=== PATIENT | female | born 2000 | race Caucasian/White ===

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

== ENCOUNTER → 2022-01-20 | Outpatient (CLI) | payer BC | LOC: LAB 15:18 | DX: N39.0 Urinary tract infection, site not specified (principal) ==

== ENCOUNTER → 2022-03-11 | Outpatient (CLI) | payer BC | LOC: RAD 16:03 | DX: R07.89 Other chest pain (principal); R22.9 Localized swelling, mass and lump, unspecified ==

== ENCOUNTER → 2022-03-14 | Outpatient (CLI) | payer BC | LOC: RAD 15:06 | DX: R07.89 Other chest pain (principal); R19.02 Left upper quadrant abdominal swelling, mass and lump ==

== ENCOUNTER → 2022-05-24 | Outpatient (CLI) | payer BC ==
[2022-05-24 12:11] LABS: BASO # 0.04 K/mm3 (0.02-0.10); EOS # 0.32 K/mm3 (0.04-0.40); EOS % 3.4 % (0.1-4.0); HEMATOCRIT 43.5 % (35.0-45.0); HEMOGLOBIN 14.2 g/dL (12.0-15.0); LYMPH# 1.67 K/mm3 (1.20-3.40); MEAN CELL VOLUME 82 fl (78-95); MEAN CORPUSCULAR HEMOGLOBIN 27 pg (26-32); MEAN CORPUSCULAR HGB CONC 33 g/dL (33-37); MONO # 0.55 K/mm3 (0.10-0.60); NEU # 6.82 K/mm3 (1.40-6.50); PLATELET COUNT 320 K/mm3 (130-400); RED BLOOD COUNT 5.28 M/mm3 (4.10-5.30); RED CELL DISTRIBUTION WIDTH 12.8 % (11.5-14.5); WHITE BLOOD COUNT 9.4 K/mm3 (4.8-10.8)
[2022-05-24 12:26] LABS: POTASSIUM 4.1 mmol/L (3.5-5.1)
[2022-05-24 12:27] LABS: ALBUMIN 4.6 g/dL (3.5-5.0)
[2022-05-24 12:28] LABS: CALCIUM 9.5 mg/dL (8.3-10.5)
[2022-05-24 12:31] LABS: TOTAL BILIRUBIN 0.3 mg/dL (0.2-1.2)
== END ==
LOC: LAB 11:49
PROVIDERS: Physician Assistant
DX: Z13.29 Encounter for screening for other suspected endocrine disorder (principal); Z13.220 Encounter for screening for lipoid disorders; J30.2 Other seasonal allergic rhinitis; T75.3XXD Motion sickness, subsequent encounter; R11.0 Nausea; F41.1 Generalized anxiety disorder; M95.3 Acquired deformity of neck; R10.9 Unspecified abdominal pain; Z83.49 Family history of other endocrine, nutritional and metabolic diseases

== ENCOUNTER → 2022-05-27 | Outpatient (CLI) | payer BC | LOC: RAD 09:00 | DX: M95.3 Acquired deformity of neck (principal) ==